=== PATIENT | male | born 2000 | race Caucasian/White ===

== ENCOUNTER 2019-11-14 05:13 | Day surgery (SDC) | payer MEDICAID ==
[~2019-11-14] VITALS: Ht 180.3 cm; Wt 179.0 kg
[2019-11-14] MEDS ORDERED: LACTATED RINGERS 1,000 ML IV SCH (05:53)
[2019-11-14] MEDS ORDERED: LORA10CA PO (05:55)
[2019-11-14] MEDS ORDERED: ROPIvacaine/PF 0.5%, 30 ML ONE (05:56)
[2019-11-14 05:57] VITALS: BP 133/73
[2019-11-14] MEDS ORDERED: LIDOCAINE-MPF 1%, 5ML ONE (05:57)
[2019-11-14] MEDS ORDERED: CHLORHEXIDINE 15 ML UDC MM ONE (06:00)
[2019-11-14] MEDS ORDERED: CHLORHEXIDINE 15 ML UDC ONE (06:03)
[2019-11-14] MEDS ORDERED: FENTANYL PF 100 MCG/2ML ONE ×2 (06:27→09:59)
[2019-11-14] MEDS ORDERED: MIDAZOLAM 1 MG/ML, 2ML ONE (06:28)
[2019-11-14] MEDS ORDERED: FENTANYL PF 250 MCG/5ML ONE (07:03)
[2019-11-14] MEDS ORDERED: ONDANSETRON 2MG/ML, 2ML ONE (07:20)
[2019-11-14] MEDS ORDERED: SUCCINYLCHOLINE 20 MG/ML, 10ML ONE (07:20)
[2019-11-14] MEDS ORDERED: CEFAZOLIN 1,000 MG ONE ×3 (07:20)
[2019-11-14] MEDS ORDERED: BUPIVACAINE/PF 0.5% ONE (07:20)
[2019-11-14] MEDS ORDERED: LIDOCAINE-MPF 2% ,5ML ONE ×2 (07:20)
[2019-11-14] MEDS ORDERED: PROPOFOL 10 MG/ML, 20ML ONE ×2 (07:20→07:53)
[2019-11-14] MEDS ORDERED: DEXAMETHASONE 4 MG/ML, 1ML ONE (07:20)
[2019-11-14] MEDS ORDERED: KETOROLAC 30 MG/1 ML ONE ×2 (07:20)
[2019-11-14] MEDS ORDERED: LORazepam 2 MG/ML, 1ML IVPush PRN (08:00)
[2019-11-14] MEDS ORDERED: MEPERIDINE/PF 25MG/0.5ML IVPush PRN (08:00)
[2019-11-14] MEDS ORDERED: hydrALAzine 20 MG/ML, 1ML IV PRN (08:00)
[2019-11-14] MEDS ORDERED: ACETAMINOPHEN 325 MG TABLET PO PRN (08:00)
[2019-11-14] MEDS ORDERED: HYDROmorphone 1 MG/ML, 1ML INJ IVPush PRN (08:00)
[2019-11-14] MEDS ORDERED: LABETALOL 5MG/ML, 20ML IV PRN (08:00)
[2019-11-14] MEDS ORDERED: ALBUTEROL SULFATE 2.5 MG/3 ML NPPB PRN (08:00)
[2019-11-14] MEDS ORDERED: PROMETHAZINE 25 MG/ML, 1ML IVPush PRN (08:00)
[2019-11-14] MEDS ORDERED: FENTANYL PF 100 MCG/2ML IV PRN (08:00)
[2019-11-14] MEDS ORDERED: OXYcodone 5 MG/5 ML ORAL.SOL UDC PO PRN (08:00)
[2019-11-14] MEDS ORDERED: ACETAMINOPHEN 650 MG/20.3 ML UDC ONE (09:59)
[2019-11-14] MEDS ORDERED: OXYcodone 5 MG/5 ML ORAL.SOL UDC ONE (09:59)
== END 2019-11-14 12:15 | disposition home or self-care (01) ==
LOC: OUT 05:13
PROVIDERS: ATTEND Orthopaedic Surgery
DX: M22.02 Recurrent dislocation of patella, left knee (principal); Z11.59 Encounter for screening for other viral diseases; M22.2X2 Patellofemoral disorders, left knee; M65.862 Other synovitis and tenosynovitis, left lower leg; E66.01 Morbid (severe) obesity due to excess calories; Z68.43 Body mass index [BMI] 50.0-59.9, adult; Z79.899 Other long term (current) drug therapy; Z88.8 Allergy status to other drugs, medicaments and biological substances; Z82.61 Family history of arthritis
CPT/HCPCS: 27418; 27427; 29873; 29876; 64447; 73564; C1713; C1762; J0330; J0690; J1100; J1885; J2250; J2405; J2704; J2795; J3010; J7120; U0001; 76000